=== PATIENT | male | born 1990 | race African-American/Black ===

== ENCOUNTER → 2024-09-15 09:54 | Outpatient (BNVA) | payer MEDICAID, SELFPAY | PROVIDERS: PCP Physician Assistant Medical; Visit Provider Urology | DX: N46.9 Male infertility, unspecified (principal) | CPT/HCPCS: 99202 ==

== ENCOUNTER 2024-09-15 14:55 | Outpatient (AMB) | payer MEDICAID, SELFPAY ==
--- NOTE | 2024-09-15 15:00 | A.OFFVIS_ITS ---
Intake Visit Reasons: Infertility consult Intake Note: Patient is present for INFERTILITY CONSULT Urology Medication:NONE Antibiotic Allergy:NONE Blood Thinner:NONE Printer Maintainer Required: No Allergies No Known Allergies Allergy (Verified 09/15/24 15:01) HPI Comments Details: Cristina is a pleasant male. He is a patient of . He is seen for the following conditions - fertility Male Infertility He presents today for - initial evaluation of male infertility Duration of infertility - greater than 12 months partner is aged 30 he has resolved Prior - she has prior child Puberty onset - 13 Prior genital surgery - No Risk factors for fertility include - present very small testicles - intact vasa, marijuana use Laboratories - no performed Semen analysis - to be performed Genetics - CFTR, Y chromosome micro deletion, Karyotype - high likelihood Klinefelter's [[facility] Ordering - 28885 - Chromosome Analysis, 02245- CFTR, 90108 - Y Chromosome Deletion] Imaging [appropriate for low volume oligo and azo spermia - TRUS or MRI] - [] Therapeutic plan includes - evaluation References for Semen and Testosterone Enhancement Otilia A, Roscoe D, Jessei C, Luis M FD, Magdalena M, Pisloane A, Vena W, Baroni MG, Pivonello R, Isidori AM, Madeline M, Wilson G. Effect of antioxidants on semen parameters in men with zlnpu-vfutxte-ocyfmdlmkvarygbp: a network meta-analysis. Andrology. 2023;12(3):538-552. doi: 10.1111/andr.90421. Epub 2022Apr 24. PMID: 60494174. Compared to placebo,?l-carnitine, especially in combination with?b-papzgr-nhuioudya (LAC), had the highest SUCRA for sperm concentration, progressive motility, and morphology. Folate was the only other compound effective on sperm concentration. Vitamin E+selenium or zinc had the highest SUCRA for total motility. A contribution on progressive motility was revealed for pentoxifylline and vitamin E+CoQ10 Elizabeth Tran, Divine Johnson ML, Gayle SE, Alex Z, Tanya TT, Priyanka SCHMIDW, Viayessica- Danielle V, Denis S, Chilango JKY, Frank TH. Do men with normal testosterone- oestradiol ratios benefit from letrozole for the treatment of male infertility? Reprod Biomed Online. 2018;38(1):39-45. doi: 10.1016/j.rbmo.2018.09.016. Ep2017Jul 29. PMID: 45510187. Letrozole improves sperm concentration and increases testosterone-oestradiol ratio for men with oligozoospermia who have normal testosterone-oestradiol ratio. 2.5mg daily Arleth Gonzáles, Aleyda Kolb, Zakiya G, Leonidas Tran, Ryan HO. Early Pharmacologic Approaches to Avert Anabolic Steroid-induced Male Infertility: A Narrative Review. Clin Ther. 2022;45(11):k711-u798. doi: 10.1016/j.clinthera.2022.09.003. Ep2022Jul 05. PMID: 09222081. ?Human chorionic gonadotropin (125-500 IU every other day), clomiphene citrate (12.5-50 mg/d), recombinant luteinizing hormone (125-500 IU every other day), recombinant follicle-stimulating hormone (75-150 IU 1-3?/wk), and human menopausal gonadotrophin (75-150 IU 1-3?/wk) [facility] Medical History (Updated 09/15/24 @ 15:19 by John Robles MD) Post-trauma syndrome Class 1 obesity ETOH abuse Acne vulgaris Dermatophytosis, nail Asthma Depression with anxiety Review of Systems Const Denies chills and Denies fever(s) Card Reports no additional complaints and Denies syncope Resp Denies cough GI Denies abdominal pain and Denies heartburn Reports as per HPI and Denies change in libido Neuro Denies syncope Psych Denies change in libido Endo Denies change in libido Physical Exam Const General: cooperative, healthy appearing, comfortable and no acute distress Orientation/consciousness: patient oriented x3 HEENT Face and sinus: Yes normal facial exam Mouth: moist mucous membranes Neck Neck: Yes normal visual inspection, Yes full ROM and Yes trachea midline Chest Chest palpation & inspection: normal inspection of the chest Resp Effort & Inspection: normal respiratory effort, able to speak in complete senten corey and no respiratory distress GI Inspection: Yes normal to inspection Back/Spine/Pelvis Cervical Spine: normal cervical lordosis Thoracic/Lumbar Spine: thoracic and lumbar spine normal to inspection Skin General skin exam: no rashes or lesions noted Neuro General: patient oriented x3, gait normal, tone normal and moves all extremities Extrem General: Yes normal to inspection and Yes capillary refill normal Assessment & Plan Assessment & Plan (1) Male infertility: Code(s): N46.9 - Male infertility, unspecified Category: Medical Plan Lab work Chromosome analysis Semen analysis Orders: Orders Lutenizing Hormone Today N46.9 - Male infertility, unspecified Follicle Stimulating Hormone Today N46.9 - Male infertility, unspecified Chromosome Anal. Blood Genetic Today N46.9 - Male infertility, unspecified Testosterone, Free/Total Today N46.9 - Male infertility, unspecified Patient Instructions: Imaging studies, laboratory and physical exam results were discussed and reviewed in detail. No major barriers to patient understanding were identified. An opportunity to ask questions regarding the treatment plan was provided. All questions were answered. The patient expressed understanding and agreement with the above treatment plan. The patient is aware they should contact our office by phone for worsening of their current condition or the appearance of new urologic symptoms. Compliance is encouraged with any medications and followup testing that is ordered. It is a privilege to participate in the urologic care of your patient. If you have any questions or concerns regarding treatment for the above conditions, or other urologic issues, please do not hesitate to contact me. The office telepho ne contact is [phone]. This note is constructed using voice recognition software. While every effort has been made to ensure accuracy turf grower errors may have been included. Yours sincerely, Dr John Robles MD, [facility] - Urology Providers of Expert, Compassionate Care for the Genitourinary System Coding Level of Care Code New Pt Level 3 (91154) Diagnoses Male infertility N46.9
== END 2024-09-15 15:23 | disposition home or self-care (01) ==
PROVIDERS: PCP Physician Assistant Medical; Visit Provider Urology
DX: N46.9 Male infertility, unspecified (principal)
CPT/HCPCS: 99203

== ENCOUNTER 2024-10-22 09:35 | Outpatient (REF) | payer MEDICAID, SELFPAY ==
[2024-10-23 11:58] LABS: Follicle Stimulating Hormone 43.6 mIU/mL (1.4-12.8); Lutenizing Hormone 26.2 mIU/mL (1.5-9.3)
[2024-10-27 18:33] LABS: Testosterone, Free 12.4 pg/mL (35.0-155.0); Testosterone, Total 122 ng/dL (250-1100)
== END 2024-10-22 09:36 | disposition home or self-care (01) ==
LOC: HO.HMGCLDS 09:35
PROVIDERS: PCP Physician Assistant Medical; Visit Provider Urology
DX: N46.9 Male infertility, unspecified (principal)
CPT/HCPCS: 36415; 83001; 83002; 84402; 84403; 88230; 88262